=== PATIENT | female | born 1950 | race Caucasian/White ===

== ENCOUNTER → 2018-10-15 | Outpatient (CLI) | payer MEDICARE ==
[~2018-10-15] MED LIST: ACTOS 30 MG TAB30 M1 PO; ALTACE10 M1; ALTACE10 MG PO; ARAVA20 MG PO; ASPIRIN81 M2 PO; BACTRIM DS TAB1 EACH; CALCIUM 500 +1 EAC5 PO; CIMZIA IM; CLEOCIN HCL300 MG PO; FOLIC ACID1 MG PO; GLIPIZIDE XL5 MG PO; GLUCOPHAGE500 MG; GLUCOPHAGE500 MG PO; HYDROCHLOROTH12.5 M1 PO; HYDROCHLOROTH12.5 MG; LEVAQUIN 500 M500 M2 PO; LIPITOR10 MG PO; MULTIVITAMINS PO; NORCO 5-325 TA1 EACH PO; NORVASC10 MG PO; OS-CAL 500+D C1 EACH; RESTORIL30 MG PO; VITAMIN D3400 UNI1 PO; [UNRECOGNIZED DRUG - MIXTURE] PO
== END ==
LOC: M.WC 08:35
DX: T81.89XA Other complications of procedures, not elsewhere classified, initial encounter (principal); E11.65 Type 2 diabetes mellitus with hyperglycemia; E66.01 Morbid (severe) obesity due to excess calories; E78.2 Mixed hyperlipidemia; I10 Essential (primary) hypertension; M05.89 Other rheumatoid arthritis with rheumatoid factor of multiple sites; Z79.82 Long term (current) use of aspirin; Z68.41 Body mass index [BMI] 40.0-44.9, adult; Z87.891 Personal history of nicotine dependence; Y92.89 Other specified places as the place of occurrence of the external cause; Y83.8 Other surgical procedures as the cause of abnormal reaction of the patient, or of later complication, without mention of misadventure at the time of the procedure

== ENCOUNTER → 2018-10-19 | Outpatient (CLI) | payer MEDICARE ==
--- NOTE | 2018-10-20 08:23 | CON ---
[address] [address] CONSULTATION Name: IRONLESA Dario [id number] Admission: 10/19/18 Attend Phys: Kathy Villarreal MD Discharge: Date of : 48 Report #: [id number] THIS REPORT FOR: //name// CC: Ethan Villarreal DATE OF SERVICE: 10/19/2018 TYPE OF CONSULTATION: Infectious Disease. REQUESTING PHYSICIAN: Dr. Kathy Villarreal. HISTORY OF PRESENT ILLNESS: The patient is a 68-year-old woman with very extensive medical history including diabetes mellitus type 2, rheumatoid arthritis, chronic immunosuppressive therapies, who was actually admitted while on vacation in [place] with a large inflammatory subcutaneous mass noted in the right medial proximal thigh and underwent operative debridement with 2 subsequent surgeries, apparently diagnosed with necrotizing skin and soft tissue infection. Ultimately, it was closed primarily with a drain, wound VAC, was transferred back to [place], [place]. She has been seen in the [facility]. She generally feels okay. She has some degree of discomfort, has not been systemically ill, appetite has been adequate. No pulmonary or gastrointestinal related complaints. She had been treated with ceftriaxone and vancomycin. There are no culture results available. Scheduled per the previous physicians to undergo treatment through 11/09/2018. ALLERGIES: TO PENICILLIN. MEDICATIONS: Include insulin, ceftriaxone, vancomycin, metformin, Actos, Altace, leflunomide, glipizide, hydrochlorothiazide, Cimzia, aspirin, Lipitor, folic acid, multivitamin, glucosamine. PAST MEDICAL HISTORY: Diabetes mellitus type 2, history of hypertension, rheumatoid arthritis, history of repeated skin and soft tissue infections, morbid obesity. SOCIAL HISTORY: Past smoker. No ethanol. No illicit drug use. FAMILY HISTORY: Noncontributory. REVIEW OF SYSTEMS: A 10-point review of systems otherwise unremarkable with the exception of the above. PHYSICAL EXAMINATION: GENERAL: She is alert, cooperative, and appropriate, in mild distress. VITAL SIGNS: [place] [address] CONSULTATION Name: LESA PERDUE Dario Room: [facility].#: [id number] Admission: 10/19/18 Attend Phys: Kathy Villarreal MD Discharge: Date of : 48 Report #: [id number] HEENT: Otherwise, unremarkable. Extraocular muscles are intact. NECK: Supple. LUNGS: Clear to auscultation. HEART: Regular. I do not appreciate any murmur. ABDOMEN: Soft, is obese, nontender. EXTREMITIES: Right groin proximal medial aspect has an extended excision, it has got sutures in it, actually no drain at this point. There is some mild degree of inflammation noted. It is tender to palpation, especially posterior, that she is lying in supine position. ASSESSMENT AND PLAN: Skin and soft tissue infection. We will continue program, as prescribed, vancomycin and Rocephin. Weekly labs including CBC, BMP, vancomycin trough, we will see her at intervals. Plan on continuing scheduled treatment protocol for additional 2 to 3 weeks. <ELECTRONICALLY SIGNED> By: Flavio De Dios MD 10/20/18 0823 0954 [id number] De Dios MD /nt
== END ==
LOC: M.WC 02:08
DX: T81.89XA Other complications of procedures, not elsewhere classified, initial encounter (principal); L03.115 Cellulitis of right lower limb; E11.65 Type 2 diabetes mellitus with hyperglycemia; E78.2 Mixed hyperlipidemia; I10 Essential (primary) hypertension; M05.89 Other rheumatoid arthritis with rheumatoid factor of multiple sites; Z87.891 Personal history of nicotine dependence; Y92.89 Other specified places as the place of occurrence of the external cause; Y83.8 Other surgical procedures as the cause of abnormal reaction of the patient, or of later complication, without mention of misadventure at the time of the procedure

== ENCOUNTER → 2018-10-30 | Outpatient (CLI) | payer MEDICARE ==
--- NOTE | 2018-11-02 07:54 | CON ---
[facility] [address] [place] [address] CONSULTATION Name: LESA PERDUE [id number] Admission: 10/30/18 Attend Phys: Saran Rangel, Discharge: Date of : 48 Report #: [id number] THIS REPORT FOR: //name// CC: Ethan Rangel DATE OF SERVICE: 10/30/2018 INFECTIOUS DISEASE CONSULTATION: HISTORY OF PRESENT ILLNESS: The patient returns today in followup for right proximal medial thigh wound as a result of previous skin and soft tissue necrotizing infection, ongoing wound care and treatment with antibiotics. She generally has been doing fairly well. Denies significant amount of pain and discomfort at baseline, does experience it with manipulation of the wound dressing changes, etc., has not had significant amount of systemic illness, no fevers or chills. Appetite has been good. She completed roughly 3 weeks of parenteral therapy post-debridement, this was done in [place], underwent 2 procedures. She has been on ceftriaxone. The PICC line had to be removed due to mainly being pulled back 25 cm. Right inguinal ulcer site of previous necrotizing skin and soft tissue infection will continue oral therapy with cefdinir 300 mg p.o. b.i.d. for additional 10 days. Continue wound care as prescribed by Dr. Rangel. She is to notify the clinic if problems or concerns. We will see her in 2 weeks after completion of the antibiotics. <ELECTRONICALLY SIGNED> By: Flavio De Dios MD 11/02/18 0754 1344 [id number] De Dios MD /nt
== END ==
LOC: M.WC 08:49
DX: T81.89XD Other complications of procedures, not elsewhere classified, subsequent encounter (principal); E11.65 Type 2 diabetes mellitus with hyperglycemia; E78.2 Mixed hyperlipidemia; E66.01 Morbid (severe) obesity due to excess calories; I10 Essential (primary) hypertension; M05.89 Other rheumatoid arthritis with rheumatoid factor of multiple sites; Z68.41 Body mass index [BMI] 40.0-44.9, adult; Z87.891 Personal history of nicotine dependence; Y83.8 Other surgical procedures as the cause of abnormal reaction of the patient, or of later complication, without mention of misadventure at the time of the procedure

== ENCOUNTER → 2018-11-06 | Outpatient (CLI) | payer MEDICARE | LOC: M.WC 05:43 | DX: T81.89XD Other complications of procedures, not elsewhere classified, subsequent encounter (principal); E11.65 Type 2 diabetes mellitus with hyperglycemia; E66.01 Morbid (severe) obesity due to excess calories; E78.2 Mixed hyperlipidemia; I10 Essential (primary) hypertension; M05.49 Rheumatoid myopathy with rheumatoid arthritis of multiple sites; M19.90 Unspecified osteoarthritis, unspecified site; Z87.891 Personal history of nicotine dependence; Z68.41 Body mass index [BMI] 40.0-44.9, adult; Y83.8 Other surgical procedures as the cause of abnormal reaction of the patient, or of later complication, without mention of misadventure at the time of the procedure ==

== ENCOUNTER → 2018-11-13 | Outpatient (CLI) | payer MEDICARE ==
--- NOTE | 2018-11-14 09:07 | CON ---
[address] [address] CONSULTATION Name: LESA PERDUE Room: [facility] Gan#: [id number] Admission: 11/13/18 Attend Phys: Saran Rangel, Discharge: Date of : 48 Report #: [id number] THIS REPORT FOR: //name// CC: Ethan Rangel DATE OF SERVICE: 11/13/2018 REASON FOR EVALUATION: Followup necrotizing skin and soft tissue infection involving right upper thigh with residual wound. This patient returns today in followup ongoing wound care or above noted lesion. She continued to progress reasonably well; the depth of the wound as well as the tunneling has diminished. She has some degree of pain at times, although this has been how she is positioned from the surface she is sitting on, otherwise she has not been systemically ill. Denies any fevers, chills. Did complete her course of antimicrobial therapy roughly 5 days ago. She has had no evidence of relapse at this point. Necrotizing skin and soft tissue infection. At this point, would not continue the antibiotics, wound care as prescribed by Dr. Rangel. We will see her as needed. <ELECTRONICALLY SIGNED> By: Flavio De Dios MD 11/14/18 0907 1600 [id number] De Dios MD /nt
== END ==
LOC: M.WC 04:35
DX: T81.89XD Other complications of procedures, not elsewhere classified, subsequent encounter (principal); E11.65 Type 2 diabetes mellitus with hyperglycemia; E66.01 Morbid (severe) obesity due to excess calories; E78.2 Mixed hyperlipidemia; I10 Essential (primary) hypertension; M05.89 Other rheumatoid arthritis with rheumatoid factor of multiple sites; Z87.891 Personal history of nicotine dependence; Z68.41 Body mass index [BMI] 40.0-44.9, adult; Y83.8 Other surgical procedures as the cause of abnormal reaction of the patient, or of later complication, without mention of misadventure at the time of the procedure

== ENCOUNTER → 2018-11-17 | Outpatient (CLI) | payer MEDICARE | LOC: M.WC 04:50 | DX: T81.89XD Other complications of procedures, not elsewhere classified, subsequent encounter (principal); L03.115 Cellulitis of right lower limb; E11.65 Type 2 diabetes mellitus with hyperglycemia; E78.2 Mixed hyperlipidemia; E66.01 Morbid (severe) obesity due to excess calories; I10 Essential (primary) hypertension; M05.89 Other rheumatoid arthritis with rheumatoid factor of multiple sites; Z68.41 Body mass index [BMI] 40.0-44.9, adult; Z87.891 Personal history of nicotine dependence; Y83.8 Other surgical procedures as the cause of abnormal reaction of the patient, or of later complication, without mention of misadventure at the time of the procedure ==

== ENCOUNTER → 2018-11-20 | Outpatient (CLI) | payer MEDICARE | LOC: M.WC 03:21 | DX: T81.89XD Other complications of procedures, not elsewhere classified, subsequent encounter (principal); E11.65 Type 2 diabetes mellitus with hyperglycemia; E78.2 Mixed hyperlipidemia; E66.01 Morbid (severe) obesity due to excess calories; I10 Essential (primary) hypertension; M05.89 Other rheumatoid arthritis with rheumatoid factor of multiple sites; Z68.41 Body mass index [BMI] 40.0-44.9, adult; Z87.891 Personal history of nicotine dependence; Y83.8 Other surgical procedures as the cause of abnormal reaction of the patient, or of later complication, without mention of misadventure at the time of the procedure ==

== ENCOUNTER → 2018-11-27 | Outpatient (CLI) | payer MEDICARE | LOC: M.WC 04:58 | DX: T81.89XD Other complications of procedures, not elsewhere classified, subsequent encounter (principal); E11.65 Type 2 diabetes mellitus with hyperglycemia; E78.2 Mixed hyperlipidemia; E66.01 Morbid (severe) obesity due to excess calories; I10 Essential (primary) hypertension; M05.89 Other rheumatoid arthritis with rheumatoid factor of multiple sites; Z68.41 Body mass index [BMI] 40.0-44.9, adult; Z87.891 Personal history of nicotine dependence; Y83.8 Other surgical procedures as the cause of abnormal reaction of the patient, or of later complication, without mention of misadventure at the time of the procedure ==

== ENCOUNTER → 2018-12-04 | Outpatient (CLI) | payer MEDICARE | LOC: M.WC 05:00 | DX: T81.89XD Other complications of procedures, not elsewhere classified, subsequent encounter (principal); E11.65 Type 2 diabetes mellitus with hyperglycemia; E78.2 Mixed hyperlipidemia; E66.01 Morbid (severe) obesity due to excess calories; I10 Essential (primary) hypertension; M05.89 Other rheumatoid arthritis with rheumatoid factor of multiple sites; Z68.41 Body mass index [BMI] 40.0-44.9, adult; Z87.891 Personal history of nicotine dependence; Y83.8 Other surgical procedures as the cause of abnormal reaction of the patient, or of later complication, without mention of misadventure at the time of the procedure ==

== ENCOUNTER → 2018-12-18 | Outpatient (CLI) | payer MEDICARE | LOC: M.WC 03:34 | DX: T81.89XD Other complications of procedures, not elsewhere classified, subsequent encounter (principal); L03.115 Cellulitis of right lower limb; E11.65 Type 2 diabetes mellitus with hyperglycemia; E66.01 Morbid (severe) obesity due to excess calories; E78.2 Mixed hyperlipidemia; I10 Essential (primary) hypertension; M05.89 Other rheumatoid arthritis with rheumatoid factor of multiple sites; Z87.891 Personal history of nicotine dependence; Z68.41 Body mass index [BMI] 40.0-44.9, adult; Y83.8 Other surgical procedures as the cause of abnormal reaction of the patient, or of later complication, without mention of misadventure at the time of the procedure ==

== ENCOUNTER → 2019-01-01 | Outpatient (CLI) | payer MEDICARE | LOC: M.WC 02:03 | DX: T81.89XD Other complications of procedures, not elsewhere classified, subsequent encounter (principal); E11.65 Type 2 diabetes mellitus with hyperglycemia; E78.2 Mixed hyperlipidemia; E66.01 Morbid (severe) obesity due to excess calories; I10 Essential (primary) hypertension; M05.89 Other rheumatoid arthritis with rheumatoid factor of multiple sites; Z87.891 Personal history of nicotine dependence; Z68.41 Body mass index [BMI] 40.0-44.9, adult; Y83.8 Other surgical procedures as the cause of abnormal reaction of the patient, or of later complication, without mention of misadventure at the time of the procedure ==

== ENCOUNTER → 2019-01-08 | Outpatient (CLI) | payer MEDICARE | LOC: M.WC 04:13 | DX: T81.89XD Other complications of procedures, not elsewhere classified, subsequent encounter (principal); E11.65 Type 2 diabetes mellitus with hyperglycemia; E66.01 Morbid (severe) obesity due to excess calories; E78.2 Mixed hyperlipidemia; I10 Essential (primary) hypertension; M05.89 Other rheumatoid arthritis with rheumatoid factor of multiple sites; Z68.41 Body mass index [BMI] 40.0-44.9, adult; Z87.891 Personal history of nicotine dependence; Y83.8 Other surgical procedures as the cause of abnormal reaction of the patient, or of later complication, without mention of misadventure at the time of the procedure ==

== ENCOUNTER → 2019-01-15 | Outpatient (CLI) | payer MEDICARE | LOC: M.WC 00:24 | DX: T81.89XD Other complications of procedures, not elsewhere classified, subsequent encounter (principal); E11.65 Type 2 diabetes mellitus with hyperglycemia; E78.2 Mixed hyperlipidemia; E66.01 Morbid (severe) obesity due to excess calories; I10 Essential (primary) hypertension; M05.89 Other rheumatoid arthritis with rheumatoid factor of multiple sites; Z68.41 Body mass index [BMI] 40.0-44.9, adult; Z87.891 Personal history of nicotine dependence; Y83.8 Other surgical procedures as the cause of abnormal reaction of the patient, or of later complication, without mention of misadventure at the time of the procedure ==

== ENCOUNTER 2019-01-17 09:25 | Inpatient (IN) | payer MEDICARE ==
[~2019-01-17] VITALS: Ht 165.1 cm; Wt 113.4 kg
[2019-01-17 09:30] VITALS: BP 137/61
[2019-01-17 10:11] LABS: HEMATOCRIT 31.2 % (37.0-47.0); HEMOGLOBIN 10.3 gm/dL (12.0-15.0); MCHC 33.1 g/dL (28.0-37.0); MCV 87.5 fL (80.0-100.0); MPV 7.5 fl. (7.2-11.1); NUCLEATED RBCS 0 /100WBC; PLATELET COUNT* 343 thou/uL (150-400); RBC 3.57 mil/uL (4.20-5.00); RDW-CV 15.6 % (10.5-14.5)
[2019-01-17 10:18] LABS: ALBUMIN 3.2 g/dL (3.4-5.0); CALCIUM 8.9 mg/dL (8.5-10.1); CREATININE 1.3 mg/dL (0.6-1.3); POTASSIUM 3.6 mmol/L (3.5-5.1); TOTAL BILIRUBIN 0.6 mg/dL (<0.1-1.0)
[2019-01-17 10:21] LABS: APTT 31.3 Seconds (25.0-31.3); INR 1.1; PROTIME 11.1 Seconds (9.20-11.50)
[2019-01-17 10:50] LABS: ABSOLUTE LYMPHOCYTES 0.7 thou/uL (0.8-5.3); ABSOLUTE MONOCYTES 1.8 thou/uL (0.0-1.2); ABSOLUTE NEUTROPHILS 20.5 thou/uL (1.6-8.1)
[2019-01-17 10:51] LABS: ANISOCYTOSIS Occasional; PLATELET ESTIMATE ADEQUATE
[2019-01-17 11:57] VITALS: BP 185/74
[2019-01-17 12:50] VITALS: BP 146/52
[2019-01-17 17:18] VITALS: BP 153/54
[2019-01-17 20:30] VITALS: BP 124/56
[2019-01-18 04:00] VITALS: BP 151/64
[2019-01-18 05:49] LABS: URINE BILIRUBIN NEGATIVE (Negative); URINE BLOOD NEGATIVE (Negative); URINE CLARITY CLEAR; URINE COLOR YELLOW; URINE GLUCOSE-RANDOM NEGATIVE (Negative); URINE KETONES NEGATIVE (Negative); URINE LEUKOCYTES-REFLEX NEGATIVE (Negative); URINE NITRITE-REFLEX NEGATIVE (Negative); URINE PROTEIN NEGATIVE (Negative); URINE SPECIFIC GRAVITY >= 1.030 (1.005-1.030); URINE UROBILINOGEN 0.2 E.U./dl (0.2-1.0)
[2019-01-18 07:30] VITALS: BP 135/58
[2019-01-18 16:37] VITALS: BP 122/62
[2019-01-18 19:25] VITALS: BP 109/43
--- NOTE | 2019-01-19 07:50 | CON ---
[address] [address] CONSULTATION Name: LESA PERDUE Room: [address] IN M.R.#: [id number] Admission: 01/17/19 Attend Phys: Aram Hurst Discharge: Date of : 48 Report #: [id number] THIS REPORT FOR: //name// CC: Ethan Levy DATE OF SERVICE: 01/18/2019 INFECTIOUS DISEASE CONSULTATION: ATTENDING PHYSICIAN: Dr. Levy. REASON FOR EVALUATION: Perineal skin and soft tissue infection with erythrodermic eruption consistent with cellulitis in the setting of positive blood culture. HISTORY OF PRESENT ILLNESS: Chart reviewed, patient examined. This is a 68-year-old well known to myself, has diabetes mellitus type 2, who developed necrotizing infection involving the perineal area specifically proximal medial aspect of her right lower extremity under the buttock area and underwent operative debridement. She has been followed by the wound care center. At that point had polymicrobial growth including Pseudomonas as well as Enterococcus. In November of this year, she had utilized a wound VAC for a number of weeks. Apparently, there is some question whether it was working correctly. It was removed and then attempted to be replaced. Subsequently, developed fevers, which were high-grade up to 103 degrees Fahrenheit. She generally felt poorly. Denied significant pulmonary-related complaints. She did have anorexia with some nausea. Due to concerns of home health nurse, she was referred to the Emergency Room. She was admitted and initial blood cultures 1 out of 2 with growth of gram-positive cocci. Wound culture pending as well. She was then started empirically on therapy with ceftriaxone and vancomycin. ALLERGIES: PENICILLIN AND SULFA. CURRENT MEDICATIONS: Include vancomycin, glipizide, acetaminophen, tramadol, ceftriaxone, pioglitazone, folic acid, calcium carbonate, aspirin, amlodipine, atorvastatin, metformin, temazepam, lisinopril, p.r.n. ondansetron, insulin sliding scale. PAST MEDICAL HISTORY: Includes diabetes mellitus, history of arthritis, hyperlipidemia, hypertension. Recent necrotizing infection involving her perineal area. SOCIAL HISTORY: Former smoker, occasional ethanol, no illicit drug use. FAMILY HISTORY: [place] [address] CONSULTATION Name: LESA PERDUE Room: [address] IN [facility]#: [id number] Admission: 01/17/19 Attend Phys: Aram Hurst Discharge: Date of : 48 Report #: [id number] REVIEW OF SYSTEMS: Otherwise, 10-point review of systems unremarkable except as noted above history of present illness. PHYSICAL EXAMINATION: GENERAL: She is sitting up in a chair. She is alert, cooperative. She is in dqlh-rh-bhjaqjzy distress, appears somewhat undernourished. She is not encephalopathic. VITAL SIGNS: Temperature is 98.4, over the last 24-hour T-max of 103, pulse 89, respirations 16, blood pressure 135/58. SKIN: Warm, dry. HEENT: Extraocular muscles intact. Normocephalic. NECK: Supple. LUNGS: Somewhat diminished, otherwise clear breath sounds. HEART: Regular. I do not appreciate a murmur. ABDOMEN: Soft, nontender, nondistended. Perineal area proximal aspect of the medial right thigh and buttock there is erythrodermic type eruption. It is quite extensive. There is an ongoing wound. There is some purulence associated with it. There is not a significant amount of necrotic material. It is tender to palpation. GENITOURINARY AND RECTAL: Deferred. LABORATORY DATA: Blood cultures 1 out of 2 thus far with Gram-positive cocci. Urinalysis unremarkable. Most recent CBC: White count of 23, H and H 10.3 and 31.2, platelets of 343. Differential showed lymphocytopenia of 700. Lactic acid of 1.6. Electrolytes: Sodium 138, potassium 3.6, chloride 100, bicarbonate 28, BUN and creatinine 25 and 1.3 and anion gap of 10. Liver functions unremarkable. Albumin 3.2, total protein 7.0. ASSESSMENT: Gram-positive septicemia in the setting of a perineal wound complicated by skin and soft tissue infection with cellulitis. Because we are concerned about Staphylococcus in this setting, we will continue combination therapy including vancomycin as well as Rocephin. Continue wound care as prescribed. At this point, she is not overtly toxic. The wound is open and I do not appreciate any significant tunneling at this point. She did not show any evidence of multisystem dysfunction either. <ELECTRONICALLY SIGNED> By: Flavio De Dios MD 01/19/19 0750 1211 [id number] De Dios MD /nt
[2019-01-19 08:21] VITALS: BP 132/54
[2019-01-19 10:23] LABS: ABSOLUTE EOSINOPHILS 0.2 thou/uL (0.0-0.7); ABSOLUTE LYMPHOCYTES 0.8 thou/uL (0.8-5.3); ABSOLUTE MONOCYTES 0.6 thou/uL (0.0-1.2); ABSOLUTE NEUTROPHILS 6.9 thou/uL (1.6-8.1); BASOPHILS 0.4 %; EOSINOPHILS 2.5 %; HEMATOCRIT 28.6 % (37.0-47.0); HEMOGLOBIN 9.6 gm/dL (12.0-15.0); LYMPHOCYTES 9.1 %; MCH 29.6 pg (26.0-34.0); MCHC 33.6 g/dL (28.0-37.0); MCV 88.3 fL (80.0-100.0); MONOCYTES 7.2 %; NUCLEATED RBCS 0 /100WBC; PLATELET COUNT* 289 thou/uL (150-400); POLYS 80.8 %; RBC 3.25 mil/uL (4.20-5.00); RDW-CV 15.5 % (10.5-14.5); WBC 8.5 thou/uL (4.0-11.0)
[2019-01-19 10:27] LABS: CALCIUM 8.3 mg/dL (8.5-10.1); CREATININE 1.3 mg/dL (0.6-1.3); POTASSIUM 3.6 mmol/L (3.5-5.1)
[2019-01-19 16:00] VITALS: BP 141/53
[2019-01-19 20:00] VITALS: BP 147/60
[2019-01-20 07:44] VITALS: BP 136/65
[2019-01-20 15:17] VITALS: BP 129/56
--- NOTE | 2019-01-20 16:16 | 2DMMODE ---
[place] [address] 2 D/M-MODE ECHOCARDIOGRAM Name: LESA PERDUE Room: [address] [facility]#: [id number] Admission: 01/17/19 Attend Phys: Eulogio Levy Discharge: Date of : 48 Date of Service: 01/20/19 1616 Report #: [id number] THIS REPORT FOR: //name// APPROVED REPORT Study performed: 01/20/2019 15:40:22 EXAM: Comprehensive 2D, Doppler, and color-flow Echocardiogram Patient Location: In-Patient Room #: [facility] Status: routine BSA: 2.17 HR: 74 bpm BP: 129/56 mmHg Rhythm: NSR Other Information Study Quality: Good Indications EDEMA 2D Dimensions IVSd: 11.61 (7-11mm) LVOT Diam: 19.90 (18-24mm) LVDd: 50.99 mm PWd: 10.20 (7-11mm) Ascending Ao: 30.40 (22-36mm) LVDs: 26.76 (25-40mm) Aortic Root: 28.25 mm Volumes Left Atrial Volume (Systole) LA ESV Index: 35.20 mL/m2 Aortic Valve AoV Peak Morales.: 1.83 m/s AO Peak Gr.: 13.35 mmHg LVOT Max P.97 mmHg AO Mean Gr.: 7.06 mmHg LVOT Mean P.41 mmHg LVOT Max V: 1.50 m/s AO V2 VTI: 37.15 cm LVOT Mean V: 0.97 m/s KENZIE (VTI): 2.71 cm2 LVOT V1 VTI: 32.32 cm Mitral Valve E/A Ratio: 0.96 MV Decel. Time: 200.98 ms MV E Max Morales.: 1.03 m/[place] [address] 2 D/M-MODE ECHOCARDIOGRAM Name: IRONLESA W Room: [address] IN .R.#: [id number] Admission: 01/17/19 Attend Phys: Eulogio Levy Discharge: Date of : 48 Date of Service: 01/20/19 1616 Report #: [id number] PHT: 58.28 ms MVA (PHT): 3.77 cm2 TDI E/Lateral E': 9.36 E/Medial E': 6.06 Medial E' Morales.: 0.17 m/s Lateral E' Morales.: 0.11 m/s Pulmonary Valve PV Peak Morales.: 1.00 m/s PV Peak Gr.: 3.97 mmHg Left Ventricle The left ventricle is normal size. There is normal LV segmental wall motion. There is normal left ventricular wall thickness. Left ventricular systolic function is normal. The left ventricular ejection fraction is within the normal range. LVEF is 55-60%. The left ventricular diastolic function is normal. Right Ventricle The right ventricle is normal size. The right ventricular systolic function is normal. Atria Left atrium is borderline dilated. The right atrium size is normal. Aortic Valve Mild aortic valve sclerosis. No aortic regurgitation is present. There is no aortic valvular stenosis. Mitral Valve Mild mitral annular calcification. Trace mitral regurgitation. No evidence of mitral valve stenosis. Tricuspid Valve The tricuspid valve is normal in structure. Unable to assess PA pressure. Trace tricuspid regurgitation. Pulmonic Valve The pulmonary valve is normal in structure. There is no pulmonic valvular regurgitation. Great Vessels The aortic root is normal in size. IVC is normal in size and collapses >50% [place] [address] 2 D/M-MODE ECHOCARDIOGRAM Name: LESA PERDUE Room: [address] [place] [facility]#: [id number] Admission: 01/17/19 Attend Phys: Eulogio Levy Discharge: Date of : 48 Date of Service: 01/20/19 1616 Report #: [id number] Pericardium There is no pericardial effusion. <Conclusion> There is normal left ventricular wall thickness. Left ventricular systolic function is normal. The left ventricular ejection fraction is within the normal range. LVEF is 55-60%. The right ventricle is normal size. Left atrium is borderline dilated. Mild aortic valve sclerosis. No aortic regurgitation is present. There is no aortic valvular stenosis. Mild mitral annular calcification. The tricuspid valve is normal in structure. IVC is normal in size and collapses >50% with inspiration. There is no pericardial effusion. There is normal LV segmental wall motion. The left ventricle is normal size. <ELECTRONICALLY SIGNED> By: Gerardo Hui MD, FACC 01/20/19 1616 1616 1616 Gerardo Hui MD, FACC /INF
[2019-01-20 20:00] VITALS: BP 139/57
[2019-01-21 08:00] VITALS: BP 135/53
[2019-01-21 13:21] VITALS: BP 135/53
[2019-01-21] MEDS ORDERED: KEFLEX500 M1 PO (14:04)
== END 2019-01-21 14:15 | disposition home health service (06) | DRG 872 ==
LOC: M.ERS 09:25 → M.TBA-ER 10:15 → M.ORTHSURG 10:15
PROVIDERS: Family Medicine; ADMIT Internal Medicine
DX: A41.89 Other specified sepsis (principal); L03.317 Cellulitis of buttock; M19.90 Unspecified osteoarthritis, unspecified site; E11.42 Type 2 diabetes mellitus with diabetic polyneuropathy; G56.03 Carpal tunnel syndrome, bilateral upper limbs; E78.5 Hyperlipidemia, unspecified; Z88.0 Allergy status to penicillin; Z88.2 Allergy status to sulfonamides; Z87.891 Personal history of nicotine dependence; Z83.3 Family history of diabetes mellitus; Z82.61 Family history of arthritis; Z82.62 Family history of osteoporosis; Z82.49 Family history of ischemic heart disease and other diseases of the circulatory system; Z79.82 Long term (current) use of aspirin; Z79.899 Other long term (current) drug therapy

== ENCOUNTER → 2019-01-22 | Outpatient (CLI) | payer MEDICARE ==
[~2019-01-22] MED LIST changes: +KEFLEX500 M1 PO
== END ==
LOC: M.WC 04:53
DX: T81.89XD Other complications of procedures, not elsewhere classified, subsequent encounter (principal); L03.115 Cellulitis of right lower limb; L08.89 Other specified local infections of the skin and subcutaneous tissue; E11.65 Type 2 diabetes mellitus with hyperglycemia; E66.01 Morbid (severe) obesity due to excess calories; E78.2 Mixed hyperlipidemia; I10 Essential (primary) hypertension; M05.89 Other rheumatoid arthritis with rheumatoid factor of multiple sites; Z87.891 Personal history of nicotine dependence; Z68.41 Body mass index [BMI] 40.0-44.9, adult; Y83.8 Other surgical procedures as the cause of abnormal reaction of the patient, or of later complication, without mention of misadventure at the time of the procedure

== ENCOUNTER → 2019-01-29 | Outpatient (CLI) | payer MEDICARE | LOC: M.WC 05:41 | DX: T81.89XD Other complications of procedures, not elsewhere classified, subsequent encounter (principal); L03.115 Cellulitis of right lower limb; E11.65 Type 2 diabetes mellitus with hyperglycemia; E78.2 Mixed hyperlipidemia; E66.01 Morbid (severe) obesity due to excess calories; M05.89 Other rheumatoid arthritis with rheumatoid factor of multiple sites; I10 Essential (primary) hypertension; Z87.891 Personal history of nicotine dependence; Z68.41 Body mass index [BMI] 40.0-44.9, adult; Y83.8 Other surgical procedures as the cause of abnormal reaction of the patient, or of later complication, without mention of misadventure at the time of the procedure ==

== ENCOUNTER → 2019-02-05 | Outpatient (CLI) | payer MEDICARE ==
--- NOTE | 2019-02-09 07:51 | CON ---
[address] [address] CONSULTATION Name: LESA PERDUE [id number] Admission: 02/05/19 Attend Phys: Saran Rangel, Discharge: Date of : 48 Report #: [id number] THIS REPORT FOR: //name// CC: Ethan Rangel DATE OF SERVICE: 02/05/2019 INFECTIOUS DISEASE CONSULTATION: ATTENDING PHYSICIAN: Dr. Rangel. REASON FOR EVALUATION: Followup hospitalization for perineal wound complicated by a secondary skin and soft tissue infection. HISTORY OF PRESENT ILLNESS: Chart reviewed, patient examined. The patient returns today in followup. There have been ongoing issues. Initially, had a necrotizing infection involving her perineal area specifically associated with the right inguinal site, had been doing fairly well, had been off antibiotics. However, developed over a fairly short period of time increasing inflammation, pain associated with the wound, some increased drainage and had systemic illness as well. She was hospitalized and was treated empirically with antibiotics. Clinically, she has improved. In fact, she has completed a course of antibiotics approximately 5 days ago. Denies any localizing signs or symptoms. She has not been febrile or any other systemic illness. Appetite has been good. On evaluation, the wound continues to improve. There is really minimal depth at this point. The overall degree of inflammation is mild at the cellulitic component being markedly improved. She is nontender. There is no fluctuance. A perineal wound complicated by skin and soft tissue infection with cellulitis. We will continue off the antibiotics for now. She is utilizing topical therapy. She was encouraged to increase her oral fluid intake, particularly protein. She will get the wound care ongoing with visits on a weekly basis. I will see her in 2 weeks. She was instructed to call if problems or concerns. <ELECTRONICALLY SIGNED> By: Flavio De Dios MD 02/09/19 0751 0935 0219Jomarilin De Dios MD /nt
== END ==
LOC: M.WC 04:38
DX: T81.89XD Other complications of procedures, not elsewhere classified, subsequent encounter (principal); L03.115 Cellulitis of right lower limb; E11.65 Type 2 diabetes mellitus with hyperglycemia; E78.2 Mixed hyperlipidemia; E66.01 Morbid (severe) obesity due to excess calories; I10 Essential (primary) hypertension; M05.89 Other rheumatoid arthritis with rheumatoid factor of multiple sites; Z68.41 Body mass index [BMI] 40.0-44.9, adult; Z87.891 Personal history of nicotine dependence; Y83.8 Other surgical procedures as the cause of abnormal reaction of the patient, or of later complication, without mention of misadventure at the time of the procedure

== ENCOUNTER → 2019-02-12 | Outpatient (CLI) | payer MEDICARE | LOC: M.WC 04:59 | DX: T81.89XD Other complications of procedures, not elsewhere classified, subsequent encounter (principal); L03.115 Cellulitis of right lower limb; E11.65 Type 2 diabetes mellitus with hyperglycemia; E78.2 Mixed hyperlipidemia; I10 Essential (primary) hypertension; M05.89 Other rheumatoid arthritis with rheumatoid factor of multiple sites; Z87.891 Personal history of nicotine dependence; Y83.8 Other surgical procedures as the cause of abnormal reaction of the patient, or of later complication, without mention of misadventure at the time of the procedure ==

== ENCOUNTER → 2019-02-19 | Outpatient (CLI) | payer MEDICARE ==
--- NOTE | 2019-02-24 11:53 | CON ---
[address] [address] CONSULTATION Name: LESA PERDUE Room: [facility] Nahid.#: [id number] Admission: 02/19/19 Attend Phys: Saran Rangle, Discharge: Date of : 48 Report #: [id number] THIS REPORT FOR: //name// CC: Ethan Rangel DATE OF SERVICE: 02/19/2019 ATTENDING PHYSICIAN: Dr. Saran Rangel. The patient returns today in followup at outpatient [facility], [place], [place]. She has ongoing issues with wound involving the right inguinal site. This was complicated by necrotizing infection. She was recently hospitalized for recurrence of the infection. She had been on systemic antibiotics up until last 1-2 weeks. On followup, the wound appears to be considerably less smaller in terms of dimension. It is very superficial at this point. On examination, there is no evidence of purulence. There is very little surface inflammation noted. Skin and soft tissue infection associated with right proximal medial thigh ulceration. At this point, we will not extend the antibiotics. Continue wound care as prescribed. I can see her as needed. <ELECTRONICALLY SIGNED> By: Flavio De Dios MD 02/24/19 1153 1137 2211Josesia De Dios MD /nt
== END ==
LOC: M.WC 04:58
DX: T81.89XD Other complications of procedures, not elsewhere classified, subsequent encounter (principal); L03.115 Cellulitis of right lower limb; E11.65 Type 2 diabetes mellitus with hyperglycemia; E66.01 Morbid (severe) obesity due to excess calories; E78.2 Mixed hyperlipidemia; I10 Essential (primary) hypertension; M05.89 Other rheumatoid arthritis with rheumatoid factor of multiple sites; Z68.41 Body mass index [BMI] 40.0-44.9, adult; Z87.891 Personal history of nicotine dependence; Y83.8 Other surgical procedures as the cause of abnormal reaction of the patient, or of later complication, without mention of misadventure at the time of the procedure

== ENCOUNTER → 2019-02-26 | Outpatient (CLI) | payer MEDICARE | LOC: M.WC 00:37 | DX: T81.89XD Other complications of procedures, not elsewhere classified, subsequent encounter (principal); L03.115 Cellulitis of right lower limb; E11.65 Type 2 diabetes mellitus with hyperglycemia; E78.2 Mixed hyperlipidemia; E66.01 Morbid (severe) obesity due to excess calories; I10 Essential (primary) hypertension; M05.89 Other rheumatoid arthritis with rheumatoid factor of multiple sites; Z87.891 Personal history of nicotine dependence; Z68.41 Body mass index [BMI] 40.0-44.9, adult; Y83.8 Other surgical procedures as the cause of abnormal reaction of the patient, or of later complication, without mention of misadventure at the time of the procedure ==

== ENCOUNTER → 2019-10-28 | Outpatient (CLI) | payer MEDICARE | LOC: M.WC 04:03 | DX: L73.2 Hidradenitis suppurativa (principal); E11.9 Type 2 diabetes mellitus without complications; E66.01 Morbid (severe) obesity due to excess calories; M06.9 Rheumatoid arthritis, unspecified; I10 Essential (primary) hypertension; Z87.891 Personal history of nicotine dependence; Z68.41 Body mass index [BMI] 40.0-44.9, adult ==

== ENCOUNTER → 2019-12-23 | Outpatient (CLI) | payer MEDICARE ==
[2019-12-23 14:36] LABS: ABSOLUTE EOSINOPHILS 0.1 thou/uL (0.0-0.7); ABSOLUTE LYMPHOCYTES 1.3 thou/uL (0.8-5.3); ABSOLUTE MONOCYTES 0.8 thou/uL (0.0-1.2); ABSOLUTE NEUTROPHILS 2.7 thou/uL (1.6-8.1); BASOPHILS 0.9 %; HEMATOCRIT 34.8 % (37.0-47.0); HEMOGLOBIN 11.8 gm/dL (12.0-15.0); LYMPHOCYTES 26.4 %; MCH 30.5 pg (26.0-34.0); MCV 89.6 fL (80.0-100.0); MONOCYTES 16.7 %; MPV 7.6 fl. (7.2-11.1); NUCLEATED RBCS 0 /100WBC; PLATELET COUNT* 221 thou/uL (150-400); RBC 3.88 mil/uL (4.20-5.00); RDW-CV 14.5 % (10.5-14.5)
== END ==
LOC: M.RAD 13:52
PROVIDERS: Internal Medicine
DX: E11.9 Type 2 diabetes mellitus without complications (principal); E78.01 Familial hypercholesterolemia; L02.91 Cutaneous abscess, unspecified; M06.9 Rheumatoid arthritis, unspecified; I10 Essential (primary) hypertension; R53.83 Other fatigue; R50.9 Fever, unspecified; R05 Cough; M47.814 Spondylosis without myelopathy or radiculopathy, thoracic region

== ENCOUNTER → 2020-05-16 | Outpatient (CLI) | payer MEDICARE | LOC: M.MRI 05-10 16:30 | PROVIDERS: ATTEND Internal Medicine | DX: M51.26 Other intervertebral disc displacement, lumbar region (principal); M47.816 Spondylosis without myelopathy or radiculopathy, lumbar region; M48.061 Spinal stenosis, lumbar region without neurogenic claudication; M54.41 Lumbago with sciatica, right side; M06.9 Rheumatoid arthritis, unspecified; E11.9 Type 2 diabetes mellitus without complications; M25.78 Osteophyte, vertebrae ==

== ENCOUNTER → 2020-05-31 | Outpatient (CLI) | payer MEDICARE ==
[~2020-05-31] MED LIST changes: +GLIPIZIDE XL10 MG PO; -GLIPIZIDE XL5 MG PO
== END ==
LOC: M.PC 04:34
PROVIDERS: ATTEND Physical Medicine & Rehabilitation
DX: M51.16 Intervertebral disc disorders with radiculopathy, lumbar region (principal); M47.26 Other spondylosis with radiculopathy, lumbar region; M48.061 Spinal stenosis, lumbar region without neurogenic claudication

== ENCOUNTER → 2020-07-24 | Outpatient (CLI) | payer MEDICARE ==
[2020-07-24 07:07] LABS: POTASSIUM 3.1 mmol/L (3.5-5.1)
== END ==
LOC: M.LAB 05:28
PROVIDERS: ATTEND Anesthesiology
DX: E87.6 Hypokalemia (principal); E11.9 Type 2 diabetes mellitus without complications

== ENCOUNTER 2020-11-21 20:35 | Emergency (ER) | payer MEDICARE ==
[~2020-11-21] VITALS: Ht 165.1 cm; Wt 122.5 kg
[2020-11-21] MEDS ORDERED: BUDESONIDE EC3 MG PO (20:45)
[2020-11-21 21:46] LABS: ABSOLUTE BASOPHILS 0.1 thou/uL (0.0-0.2); ABSOLUTE EOSINOPHILS 0.2 thou/uL (0.0-0.7); ABSOLUTE LYMPHOCYTES 1.3 thou/uL (0.8-5.3); ABSOLUTE MONOCYTES 0.6 thou/uL (0.0-1.2); ABSOLUTE NEUTROPHILS 4.5 thou/uL (1.6-8.1); BASOPHILS 1.1 %; EOSINOPHILS 2.5 %; HEMATOCRIT 33.5 % (37.0-47.0); HEMOGLOBIN 11.2 gm/dL (12.0-15.0); LYMPHOCYTES 19.7 %; MCH 30.5 pg (26.0-34.0); MCHC 33.3 g/dL (28.0-37.0); MCV 91.4 fL (80.0-100.0); MONOCYTES 8.6 %; MPV 7.2 fl. (7.2-11.1); NUCLEATED RBCS 0 /100WBC; PLATELET COUNT* 266 thou/uL (150-400); POLYS 68.1 %; RBC 3.67 mil/uL (4.20-5.00); RDW-CV 14.3 % (10.5-14.5); WBC 6.6 thou/uL (4.0-11.0)
[2020-11-21 21:53] LABS: CALCIUM 9.5 mg/dL (8.5-10.1); CREATININE 1.2 mg/dL (0.6-1.3)
[2020-11-21 21:58] LABS: ALBUMIN 3.4 g/dL (3.4-5.0); MAGNESIUM 2.1 mg/dL (1.8-2.4); TOTAL BILIRUBIN 0.2 mg/dL (<0.1-1.0); TOTAL PROTEIN 6.7 g/dL (6.4-8.2)
[2020-11-21 21:58] LABS: BE 4.1 mmol/L (-2 to +3); PCO2 41.2 mmHg (35.0-45.0); pH 7.456 (7.340-7.450)
[2020-11-21 22:35] LABS: URINE BILIRUBIN NEGATIVE (Negative); URINE BLOOD NEGATIVE (Negative); URINE CLARITY CLEAR; URINE COLOR YELLOW; URINE GLUCOSE-RANDOM NEGATIVE (Negative); URINE KETONES NEGATIVE (Negative); URINE LEUKOCYTES-REFLEX NEGATIVE (Negative); URINE NITRITE-REFLEX NEGATIVE (Negative); URINE PROTEIN NEGATIVE (Negative); URINE UROBILINOGEN 0.2 E.U./dl (0.2-1.0)
[2020-11-21 22:57] LABS: PROTIME 10.3 Seconds (9.20-11.50)
[2020-11-21 23:54] VITALS: BP 142/60
--- NOTE | 2020-11-22 11:52 | EKG ---
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 : 1950 Requested By: Agustina Tejeda Order Number: [id number] Donovan MD: Ethan Alejandro Measurements Intervals [place] Rate: 73 P: 39 SC: 123 QRS: 47 QRSD: 116 T: 29 QT: 385 QTc: 425 Interpretive Statements Sinus rhythm Incomplete right bundle branch block Low voltage, precordial leads Compared to ECG 07/15/2016 09:23:15 no change Electronically Signed On 11-22-2020 11:52:11 BLOCK CLEANER by Ethan Alejandro [email or web address] <ELECTRONICALLY SIGNED> By: Ethan Alejandro MD, FAC 11/22/20 1152 26 26 Ethan Alejandro MD, [facility] /EPI
== END 2020-11-21 23:54 | disposition home or self-care (01) ==
LOC: M.ERS 20:35
PROVIDERS: Personal Emergency Response Attendant
DX: R06.02 Shortness of breath (principal); R07.89 Other chest pain; Z20.828 Contact with and (suspected) exposure to other viral communicable diseases; E11.9 Type 2 diabetes mellitus without complications; M19.90 Unspecified osteoarthritis, unspecified site; E78.5 Hyperlipidemia, unspecified; Z88.2 Allergy status to sulfonamides; Z88.0 Allergy status to penicillin; Z90.89 Acquired absence of other organs

== ENCOUNTER → 2020-12-20 | Outpatient (CLI) | payer MEDICARE ==
[~2020-12-20] MED LIST changes: +BUDESONIDE EC3 MG PO
== END ==
LOC: M.PC 09:33
PROVIDERS: ATTEND Physical Medicine & Rehabilitation
DX: M51.16 Intervertebral disc disorders with radiculopathy, lumbar region (principal); M47.26 Other spondylosis with radiculopathy, lumbar region; M48.061 Spinal stenosis, lumbar region without neurogenic claudication; M79.604 Pain in right leg

== ENCOUNTER → 2021-01-01 | Outpatient (CLI) | payer MEDICARE | END | disposition home or self-care (01) | LOC: M.PC 09:13 | PROVIDERS: ATTEND Physical Medicine & Rehabilitation | DX: M47.816 Spondylosis without myelopathy or radiculopathy, lumbar region (principal); M54.5 Low back pain; M51.36 Other intervertebral disc degeneration, lumbar region; M48.061 Spinal stenosis, lumbar region without neurogenic claudication; I10 Essential (primary) hypertension; E78.5 Hyperlipidemia, unspecified; Z98.890 Other specified postprocedural states; Z79.899 Other long term (current) drug therapy; Z88.0 Allergy status to penicillin; Z88.2 Allergy status to sulfonamides ==

== ENCOUNTER → 2021-01-15 | Outpatient (CLI) | payer MEDICARE ==
[~2021-01-15] MED LIST changes: +LASIX 40 MG TAB40 MG PO; +TOPROL XL25 MG PO
== END ==
LOC: M.PC 09:46
PROVIDERS: ATTEND Physical Medicine & Rehabilitation
DX: M51.16 Intervertebral disc disorders with radiculopathy, lumbar region (principal); M48.061 Spinal stenosis, lumbar region without neurogenic claudication; M47.26 Other spondylosis with radiculopathy, lumbar region; M79.604 Pain in right leg; Z88.8 Allergy status to other drugs, medicaments and biological substances; Z79.899 Other long term (current) drug therapy

== ENCOUNTER 2021-01-30 10:38 | Emergency (ER) | payer MEDICARE ==
[~2021-01-30] VITALS: Ht 165.1 cm; Wt 79.4 kg
[~2021-01-30 10:38] MED LIST changes: -LASIX 40 MG TAB40 MG PO; -TOPROL XL25 MG PO
[2021-01-30] MEDS ORDERED: LASIX 40 MG TAB40 MG PO (10:47)
[2021-01-30] MEDS ORDERED: TOPROL XL25 MG PO (10:47)
[2021-01-30 10:57] LABS: ABSOLUTE BASOPHILS 0.1 thou/uL (0.0-0.2); ABSOLUTE EOSINOPHILS 0.6 thou/uL (0.0-0.7); ABSOLUTE LYMPHOCYTES 1.7 thou/uL (0.8-5.3); ABSOLUTE MONOCYTES 0.8 thou/uL (0.0-1.2); ABSOLUTE NEUTROPHILS 5.4 thou/uL (1.6-8.1); BASOPHILS 1.2 %; EOSINOPHILS 7.3 %; HEMATOCRIT 35.8 % (37.0-47.0); HEMOGLOBIN 11.8 gm/dL (12.0-15.0); LYMPHOCYTES 19.6 %; MCH 29.8 pg (26.0-34.0); MCV 90.1 fL (80.0-100.0); MONOCYTES 9.2 %; MPV 7.7 fl. (7.2-11.1); NUCLEATED RBCS 0 /100WBC; PLATELET COUNT* 300 thou/uL (150-400); POLYS 62.7 %; RBC 3.97 mil/uL (4.20-5.00); RDW-CV 14.4 % (10.5-14.5); WBC 8.6 thou/uL (4.0-11.0)
[2021-01-30 11:09] LABS: CALCIUM 9.1 mg/dL (8.5-10.1)
[2021-01-30 11:10] LABS: APTT 25.8 Seconds (25.0-31.3); PROTIME 10.9 Seconds (9.20-11.50)
[2021-01-30 11:21] LABS: ALBUMIN 3.7 g/dL (3.4-5.0); TOTAL BILIRUBIN 0.5 mg/dL (<0.1-1.0); TOTAL PROTEIN 7.6 g/dL (6.4-8.2)
[2021-01-30 12:59] VITALS: BP 163/59
--- NOTE | 2021-01-30 15:05 | EKG ---
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: JULIÁN : 1950 Requested By: Matthew Chapman Order Number: [id number] MD: Javier Orr Measurements Intervals [place] Rate: 66 P: 25 OR: 132 QRS: 37 QRSD: 111 T: -7 QT: 432 QTc: 453 Interpretive Statements Sinus rhythm Low voltage, precordial leads Nonspecific T abnormalities, anterior leads Compared to ECG 11/21/2020 21:27:54 T-wave abnormality now present Incomplete right bundle-branch block no longer present Electronically Signed On 01-30-2021 15:05:04 CDT by Javier Orr [email or web address] <ELECTRONICALLY SIGNED> By: Javier Orr MD, FACC 01/30/21 1505 1049 1049 Javier Orr MD, FACC /EPI
== END 2021-01-30 13:00 | disposition home or self-care (01) ==
LOC: M.ERS 10:38
PROVIDERS: Family Medicine
DX: R06.00 Dyspnea, unspecified (principal); R60.0 Localized edema; E11.9 Type 2 diabetes mellitus without complications; M19.90 Unspecified osteoarthritis, unspecified site; E78.5 Hyperlipidemia, unspecified; Z90.89 Acquired absence of other organs; Z88.0 Allergy status to penicillin; Z88.2 Allergy status to sulfonamides